=== PATIENT | female | born 1955 | race African-American/Black ===

== ENCOUNTER 2025-01-01 10:32 | Outpatient (CLI) | payer MEDICARE, SELFPAY ==
--- NOTE | ~2025-01-01 | MMUS_ITS ---
EXAMINATION: US breast RT limited, MM diagnostic ruby RT w quan HISTORY: Inconclusive mammogram. Focal asymmetry in the right breast at 11:00 position middle depth TECHNIQUE: [Additional images of the right breast]] were performed using full field digital mammography. 3-D tomosynthesis were also obtained and synthetic 2- D images were generated. CAD analysis was submitted and interpreted. High resolution right breast ultrasound of the right breast from the 9 to 12:00 position was performed.] ] COMPARISON: Mammograms from 11/12/2024 and 09/06/2022 BREAST PARENCHYMAL COMPOSITION: The right breast is composed of scattered fibroglandular densities FINDINGS: MAMMOGRAPHIC FINDINGS: There is a focal asymmetry in the right breast at the 11:00 position middle depth. No suspicious calcifications or architectural distortion. ULTRASOUND: There is a 4 x 4 x 3 mm nonenlarged morphologically benign intramammary lymph node in the right breast at the 12:00 position 6 cm from the nipple. No other cystic or solid mass identified. IMPRESSION/RECOMMENDATION: 1. Probably benign finding in the right breast. A diagnostic right breast mammogram and a diagnostic right breast ultrasound in 6 months is recommended. BIRADS 3-Probably Benign Reviewed, dictated and finalized at location Q. IMPRESSION/RECOMMENDATION: 1. Probably benign finding in the right breast. A diagnostic right breast mammo gram and a diagnostic right breast ultrasound in 6 months is recommended. BIRADS 3-Probably Benign IMPRESSION/RECOMMENDATION: 1. Probably benign finding in the right breast. A diagnostic right breast mammo gram and a diagnostic right breast ultrasound in 6 months is recommended. BIRADS 3-Probably Benign
--- OUTSIDE RECORDS SUMMARY | 2025-01-01 11:08 | XMS_ITS | Encounter Summary ---
Author Organization [facility] Address [address] [facility] [place] [address] Phone Care Team Providers Care Circuit Board Assembler Name Role Phone Preet Boles Unavailable Tanya Gonzalez APRN, ORDER PACKER [facility] Cristhian May MD Unavailable Encounter Details Date Type Department Care Team (Late st Contact Info) Description 11/15/2024 Telephone [facility] Central Scheduling [address] [place] [address] Tanya Gonzalez APRN, ORDER PACKER [address] [place] [address] Social History Tobacco Use Types Packs/Day Years Used Date Smoking Tobacco: Never Smokeless Tobacco: Never Alcohol Use Standard Drinks/Week Comments Yes 0 (1 standard drink = 0.6 oz pur e alcohol) occasionally a mixed drink [facility] Utilities Answer Date Recorded In the past 12 months has [employer] electric, gas, oil, or water company threatened to shut off services in your home? No 08/10/2024 Social Connection and Isolation Panel Answer Date Recorded In a typical week, how many times do you talk on the phone with family, friends, or neighbors? More than three times a week 08/10/2024 How often do you get togethe r with friends or relatives? More than three times a week 08/10/2024 How often do you attend chur or druze services? More than 4 times per year 08/10/2024 Do you belong to any clubs o r organizations such as sikh groups, unions, fraternal or athletic groups, or school groups? Yes 08/10/2024 How often do you attend meet ings of the clubs or organizations you belong to? More than 4 times per year 08/10/2024 Are you , , di vorced, , never , or living with a partner? 08/10/2024 AUDIT-C Answer Date Recorded Q1: How often do you have a drink containing alc ohol? 2-4 times a month 08/10/2024 Q2: How many drinks containi ng alcohol do you have on a typical day when you are drinking? 1 or 2 08/10/2024 Q3: How often do you have si x or more drinks on one occasion? Never 08/10/2024 Overall Financial Resource Strain (CARDIA) Answe r Date Recorded How hard is it for you to pa y for the very basics like food, housing, medical care, and heating? Not hard at all 08/10/2024 PHQ-2 Answer Date Recorded Total Score - Questions 1-9 0 07/31 [facility] - Occupational Stress Questionnaire Answer Date Recorded Do you feel stress - tense, restless, nervous, or anxious, or unable to sleep at night because your mind is troubled all the time - these days? Not at all 08/10/2024 Exercise Vital Sign Answer Date Recorde d On average, how many days pe r week do you engage in moderate to strenuous exercise (like a brisk walk)? 5 days 08/10/2024 On average, how many minutes do you engage in exercise at this level? 40 min 08/10/2024 Hunger Vital Sign Answer Date Recorded Within the past 12 months, y ou worried that your food would run out before you got the money to buy more. Never true 08/11/19 25 Within the past 12 months, t he food you bought just didn't last and you didn't have money to get more. Never true 08/10/2024 PRAPARE - Transportation Answer Date Re corded In the past 12 months, has l ack of transportation kept you from medical appointments or from getting medications? No 07/31 In the past 12 months, has l ack of transportation kept you from meetings, work, or from getting things needed for daily living? No 08/10/2024 Housing Stability Vital Sign Answer Tico e Recorded In the last 12 months, was t here a time when you were not able to pay the mortgage or rent on time? No 08/10/2024 In the past 12 months, how m any times have you moved where you were living? 0 08/10/2024 At any time in the past 12 m [facility], were you homeless or living in a prison (including now)? No 08/10/2024 Education Answer Date Recorded What is the highest level of school you have completed or the highest degree you have received? Associate degree: academic program 01/28/2023 Sexually Active Control Partners Comments Not Currently Post-menopausal Comments No Sex and Gender Information Value Date Recorded Sex Assigned at Not on file Legal Sex Female 8:51 PM CDT Gender Identity Not on file Sexual Orientation Not on file documented as of this encounter Miscellaneous Notes * Telephone Encounter - Madalyn Palomares RMA - 11/15/2024 9:03 AM CDT I called patient to help with getting her follow up DX mamm set up. As we are completely booked until the end of November, she is being referred to [facility] to have this done. Orders have beenfaxed and Imaging to be pushed to them to compare. Patient is aware and agreeable to have this there. documented in this encounter Plan of Treatment Upcoming Encounters Date Type Department Care Team (Late st Contact Info) Description 02/11/2025 8:10 AM CDT Lab [facility] [place] [place] [address] [facility] 02/18/2025 8:30 AM CDT Office Visit [facility] - [facility] - [place] [address] Tanya Gonzalez APRN, ORDER PACKER [address] [place] [address] documented as of this encounter Visit Diagnoses Not on filedocumented in this encounter Additional Health Concerns Assessment Noted Time PHQ-9 Depression Total Score: 0 08/14/19 25 8:15 AM CDT documented as of this encounter Care Teams Circuit Board Assembler Relationship Specialty Start Date End Date Tanya Gonzalez APRN, ORDER PACKER [address] [place] [address] PCP - General Advanced Practice Nurse 03/20/20 Preet Boles Consulting Physician Obstetrics & Gynecology 03/10/18 Cristhian May MD [address] [id number] Consulting Physician General Surgery 08/11/22 documented as of this encounter
--- OUTSIDE RECORDS SUMMARY | 2025-01-01 11:09 | XMS_ITS | Clinical Summary ---
Author Organization [facility] al Address [address] [place] [address] Care Team Providers Care Occupational Physician Name Role Phone No, Physician Primary Care Provider [phone] Preet Boles MD Unavailable Allergies Active Allergy Reactions Criticality Noted Date Comments Penicillins Unknown,Itching Low 03/10/2018 Medications multivitamin tablet Take by mouth Active vit Z-lmlqewh-pxbt- rutin-hb196 [id number] mg tablet Take by mouth Active ibuprofen (ADVIL,MOTRIN) 600 mg tablet Take 1 tablet (600 mg total) by mouth every 6 (six) hours as needed for pain 20 tablet 07/17/2020 Active HYDROcodone-gricelda taminophen (NORCO) 5-325 mg per tabletIndicatio ns:Pain Take 1-2 tablets by mouth every 4 (four) hours as needed for pain 10 tablet 07/17/2020 Active Active Problems Problem Noted Date Diagnosed Date Postmenopausal bleeding 05/22/2020 Fibroids 05/22/2020 Surgical History Surgery Date Site/Laterality Comments OTHER SURGICAL HISTORY 05/02/2001 - 06/01/2001 Right fatty tissue tumor arm Social History Tobacco Use Types Packs/Day Years Used Date Smoking Tobacco: Never Smokeless Tobacco: Never Alcohol Use Standard Drinks/Week Comments Yes 0 (1 standard drink = 0.6 oz pur e alcohol) AUDIT-C Answer Date Recorded Q1: How often do you have a drink containing alc ohol? 2-4 times a month 07/15/2020 Q2: How many drinks containi ng alcohol do you have on a typical day when you are drinking? 3 or 4 07/15/2020 Frequency of Binge Drinking Not on file 06/30 Comments No Sex and Gender Information Value Date Recorded Sex Assigned at Not on file Legal Sex Female 9:52 AM SHEET METAL SHOP HELPER Gender Identity Not on file Sexual Orientation Not on file Obstetrics History Para Term AB IAB SAB Ectopic Multiple Livin g Live Births 2 2 2 2 Date Outcome GA Total Labor Labor/2nd/3rd Weight Sex Type Anes PTL Alba A1 A5 Name Clin Term Term Last Filed Vital Signs Vital Sign Reading Time Taken Comments Blood Pressure 129/74 07/17/2020 3:37 PM CDT Pulse 77 07/17/2020 3:37 PM CDT Temperature 36.6 C (97.9 F) 07/17/2020 2:08 PM CDT Respiratory Rate 20 07/17/2020 3:37 PM CDT Oxygen Saturation 99% 07/17/2020 2:38 PM CDT Inhaled Oxygen Concentration - - Weight 74.1 kg (163 lb 5.8 oz) 07/17/2020 11:02 AM CDT Height 160 cm (5' 3) 07/17/2020 11:02 AM CDT Body Mass Index 28.94 07/17/2020 11:02 AM CDT Plan of Treatment Not on file Insurance [facility] [place] [facility] [facility] MEDICARE PPO HUMAN CLAIMS OFFICE [facility] [employer] CLAIMS OFFICE [employer] CHO[employer] MEDICARE PPO Care Teams Occupational Physician Relationship Specialty Start Date End Date No, Physician PCP - General 07/11/20 Preet Boles MD [address] [place] [address] [address]VAL[address] [id number] Drywall Boardhanger Obstetrics and Gynecology 07/17/20
--- OUTSIDE RECORDS SUMMARY | 2025-01-01 11:09 | XMS_ITS | Clinical Summary ---
Author Organization [facility] Address [address] [place] [address] Phone Care Team Providers Care Gis Software Engineer Name Role Phone Preet Boles Unavailable Tanya Gonzalez APRN, AGENCY RECRUITER Primary Care P rovider Cristhian May MD Unavailable Allergies Active Allergy Reactions Criticality Noted Date Comments Penicillins Itching,Unknown Low 03/10/2018 Medications Multiple Vitamin (MULTIVITAMIN PO) Take by mouth. Active Cyanocobalamin (VITAMIN B12 PO) Take by mouth. Active Ascorbic Acid (VITAMIN C PO) Take by mouth. Active Active Problems Problem Noted Date Diagnosed Date Wellness examination (Adult) 02/07/2024 Iron deficiency anemia due to chronic blood loss 02/07/2024 Encounter for immunization 02/07/2024 Colon polyps 12/12/2023 Mixed hyperlipidemia 07/29/2023 Fibroids 05/22/2020 Postmenopausal bleeding 05/22/2020 Encounters Date Type Department Care Team Description [facility] [address] [place] [address] Tanya Gonzalez APRN, AGENCY RECRUITER [facility] [place] [address] [place] [address] Tanya Gonzalez APRN, CNP 11/12/2024 10:32 AM CDT - 11/12/2024 11:59 PM CDT Hospital Encounter [facility] [address] [place] [address] Tanya Gonzalez APRN, CNP Discharge Disposition: Discharged to home or Selfcare 11/12/2024 Travel from Last 3 Months Immunizations Immunization Administration Dates Next Due Covid-19, Mrna, Lnp-s, Pf, 30 Mcg/0.3 Ml Dose (P johnzer) 07/21/2020,06/30/2020 Influenza, Trivalent, Adjuvanted, PF 02/19/2024 Pneumococcal conjugate PCV20 , polysaccharide [id number] conjugate, adjuvant, PF 02/07/2024 Family History Medical History Relation Name Comments Heart Attack Brother No Known Problems Daughter Congestive Heart Failure Father Heart Attack Father No Known Problems Maternal Grandfather Congestive Heart Failure Maternal Grandmother Cancer Mother kidney Hypertension Mother Hypertension Sister 1 Hypertension Sister 2 No Known Problems Son Relation Name Status Comments Brother Daughter Alive Father Maternal Grandfather Maternal Grandmother Mother Paternal Grandfather Paternal Grandmother Sister 1 Alive Sister 2 Alive Son Alive Social History Tobacco Use Types Packs/Day Years Used Date Smoking Tobacco: Never Smokeless Tobacco: Never Tobacco Cessation:Counseling Given: Not Answered Alcohol Use Standard Drinks/Week Comments Yes 0 (1 standard drink = 0.6 oz pur e alcohol) occasionally a mixed drink [employer] Answer Date Recorded In the past 12 months has [employer], [employer], or water [employer] threatened to shut off services in your [...] week 08/10/2024 How often do you attend [facility] or bahai services? More than 4 times per year 08/10/2024 Do you belong to any clubs o r organizations such as bahai groups, unions, fraternal or athletic groups, or [...] Total Score - Questions 1-9 0 07/31 [facility] - Occupational Stress [...] any time in the past 12 [facility], were you homeless or living in a fci (including now)? No 08/10/2024 Education Answer Date [...] on file Sexual Orientation Not on file Last Filed Vital Signs Vital Sign Reading Time Taken Comments Blood Pressure 124/70 08/13/2024 8:05 AM CDT Pulse 79 08/13/2024 8:05 AM CDT Temperature 36.3 C (97.3 F) 08/13/2024 8:05 AM CDT Respiratory Rate 20 08/13/2024 8:05 AM CDT Oxygen Saturation 99% 08/13/2024 8:05 AM CDT Inhaled Oxygen Concentration - - Weight 73.5 kg (162 lb) 08/13/2024 8:05 AM CDT Height 162.6 cm (5' 4) 08/13/2024 8:05 AM CDT Body Mass Index 27.81 08/13/2024 8:05 AM CDT Plan of Treatment Upcoming Encounters Date Type Department Care Team (Late st Contact Info) Description 02/11/2025 8:10 AM CDT [facility] [place] [address] [place] [address] [facility] 02/18/2025 8:30 AM CDT [facility] - [place] [address] [place] [address] Tanya Gonzalez APRN, AGENCY RECRUITER [address] [place] [address] Health Maintenance Due Date Last Done Comments TdaP Immunization 1955 Cologuard 2000 Immunochemical Fecal Occult Blood 2000 Zoster Immunization (1 of 2) 2005 Influenza Immunization (#1) 2024 02/19/2024 SARS-COV-2 Immunization ( season) 2024 02/19/2024, 06/26/2023, 02/06/2022, Additional history exists Mammogram 11/12/2025 11/12/2024, 10/30, 09/06/2022, Additional history exists DEXA Bone Density 02/12/2026 02/13/2024, 08/17/2021 Respiratory Syncytial Virus (RSV) Immunization (Adult) (1 - 1-dose 75+ series) 2030 Colonoscopy 12/11/2030 12/12/2023, 11/30, 10/27/2018 Colorectal Cancer Screening 12/11/2030 Hepatitis C Virus (HCV) Screening Completed 01/28/2023 Pneumococcal Immunization (50+ years) Completed 02/07/2024 Pneumococcal Immunization Combined Discontinued 02/07/2024 Hepatitis B Immunization Aged Out No longer eligible based on patient's age to complete this topic Human Papillomavirus (HPV) Immunization Aged Out No longer eligible based on patient's age to complete this topic Meningococcal Immunization (ACWY) Aged Out No longer eligible based on patient's age to complete this topic Rotavirus Immunization Aged Out No lo nger eligible based on patient's age to complete this topic Procedures Procedure Name Priority Date/Time Associated Diagnosis Comments JUSTUS SCREENING BILATERAL DIGITAL W CAD W VICENTA Routine 11/12/2024 11:00 AM CDT Encounter for screening mammogram for breast cancer JUSTUS BONE DENSITOMETRY AXIAL SKELETON Routine 02/13/2024 9:29 AM CDT Postmenopausal HEPATITIS C ANTIBODY Routine 01/28/2023 10:36 AM CDT Encounter for HCV screening test for low risk patient from Last 3 Months or Most Recently Relevant to Health Maintenance Results * JUSTUS SCREENING BILATERAL DIGITAL W CAD W VICENTA (11/12/2024 11:00 AM CDT) Anatomical Region Laterality Modality breast Bilateral Mammography 11/12/2024 10:3 4 AM CDT Narrative 11/13/2024 12:37 PM CDT - JUSTUS SCREENING BILATERAL DIGITAL W CAD W VICENTA BILATERAL DIGITAL SCREENING MAMMOGRAM 3D/2D WITH CAD WITH MEDIOLATERAL OBLIQUE CRANIOCAUDAL: 11/12/2024 The study was acquired using digital technology and interpreted from soft copy. Current study was also evaluated with ICAD version 7.2. 2D digital mammographic views, as well as 3D digital tomosynthesis were performed in the CC and MLO projections. CLINICAL: Routine screening. Patient has no complaints. No personal history of cancer. Sister with postmenopausal breast cancer. COMPARISONS: Comparison is made to exams dated: 11/11/2023, 09[facility]06/2022, [facility] BREAST TISSUE:There are scattered areas of fibroglandular density. FINDINGS: There is a focal asymmetry in the right breast at 11 o'clock middle depth. No other significant masses, calcifications, or other findings are seen in either breast. IMPRESSION: INCOMPLETE: NEED ADDITIONAL IMAGING EVALUATION The focal asymmetry in the right breast is indeterminate. An immediate follow-up is recommended. A letter will be sent to the patient with these results. Electronically signed by: Guerda miner/ji:11/12/2024 16:34:23 Processing Technologist(s): RT Tomasa(R)(M), [facility] letter sent: Additional Imaging Reading location: [facility] Mammogram BI-RADS: Category 0: Incomplete: Need Additional Imaging Evaluation Procedure Note Guerda Andre MD - 11/13/2024 - JUSTUS SCREENING BILATERAL DIGITAL W CAD W VICENTA BILATERAL DIGITAL SCREENING MAMMOGRAM 3D/2D WITH CAD WITH MEDIOLATERAL OBLIQUE CRANIOCAUDAL: 11/12/2024 The study was acquired using digital technology and interpreted from soft copy. Current study was also evaluated with ICAD version 7.2. 2D digital mammographic views, as well as 3D digital tomosynthesis were performed in the CC and MLO projections. CLINICAL: Routine screening. Patient has no complaints. No personal history of cancer. Sister with postmenopausal breast cancer. COMPARISONS: Comparison is made to exams dated: 11/11/2023, 09/06/2022, and 06/15/2021 [facility]. BREAST TISSUE:There are scattered areas of fibroglandular density. FINDINGS: There is a focal asymmetry in the right breast at 11 o'clock middle depth. No other significant masses, calcifications, or other findings are seen in either breast. IMPRESSION: INCOMPLETE: NEED ADDITIONAL IMAGING EVALUATION The focal asymmetry in the right breast is indeterminate. An immediate follow-up is recommended. A letter will be sent to the patient with these results. Electronically signed by: Guerda miner/ji:11/12/2024 16:34:23 Processing Technologist(s): RT Tomasa(R)(M), [facility] letter sent: Additional Imaging Reading location: [place] Mammogram BI-RADS: Category 0: Incomplete: Need Additional Imaging Evaluation Tanya Gonzalez APRN, CNP IM MAMMO ORDER BRODERICK Final Result * JUSTUS BONE DENSITOMETRY AXIAL SKELETON (02/13/2024 9:29 AM CDT) Anatomical Region Laterality Modality BODY N/A Computed Radiogr aphy 02/14/2024 5:54 AM CDT Impressions 02/14/2024 5:57 AM CDT IMPRESSION: Normal bone mass. REFERENCE: Bone mineral density: T-Score: Normal (T-score above or = -1.0) Low bone mass (T-score between -1.0 and -2.5) replaces the previously used term osteopenia Osteoporosis (T-score = or below -2.5) Z-Score: Within the expected range for age (Z-score above -2.0) Below the expected range for age (Z-score is -2.0 or below) Please see below follow up recommendations. Medical evaluation for secondary causes of low bone mineral density may be appropriate. FRAX is a World Health Organization validated fracture risk assessment tool that calculates a person's 10 year probability of a major osteoporosis related fracture and hip fracture. According to the National Osteoporosis Foundation guidelines, postmenopausal women and men age 50 or older with low bone mass and a 10 year probability of a major osteoporosis related fracture = or greater than 20% or a 10 year probability of a hip fracture = or greater than 3% should be considered for pharmacological treatment for the prevention of osteoporosis. For further information, including treatment recommendations, please refer to the 2019 ISCD Official Positions (http://www.iscd.org) and the NOF's Clinician's Guide to Prevention and Treatment of Osteoporosis (http://www.nof.org/professionals/clinical-guidelines) Narrative 02/14/2024 5:57 AM CDT EXAM DESCRIPTION: [facility] BONE DENSITOMETRY AXIAL SKELETON REASON FOR STUDY: 68 y/o year old F with given history of: Postmenopausal status. History taking a multivitamin. Mortgage Underwriter/Model: [employer] (S/N [id number]) CLINICAL INFORMATION: Current height: 64 inches Maximum height: 64 inches Weight: 158 pounds Risk factors: None COMPARISON: 08/17/2021 FINDINGS: AP LUMBAR SPINE L1-L4: Total BMD is 1.266 g/cm2 T-score is 0.6 This is a 4.1% decrease in comparison to prior exam which is statistically significant. LEFT HIP: Total BMD is 1.048 g/cm2 T-score is 0.3 This is a 1.9% decrease in comparison to prior exam which is not statistically significant. Femoral neck BMD is 1.004 g/cm2 T-score is -0.2 FRAX: FRAX not reported due to T-scores of hip, femoral neck and/or spine being at or above -1.0 (Normal). THIS IS AN ELECTRONICALLY VERIFIED FINAL REPORT 02/14/2024 5:54 AM - Electronically signed by Danielle Mcclure M.D. TW: ALFONSO Report ID: [id number] Reading Location: [place] [address] Procedure Note Danielle Mcclure MD - 02/14/2024 EXAM DESCRIPTION: [facility] BONE DENSITOMETRY AXIAL SKELETON REASON FOR STUDY: 68 y/o year old F with given history of: Postmenopausal status. History taking a multivitamin. Mortgage Underwriter/Model: [employer] (S/N [id number]) CLINICAL INFORMATION: Current height: 64 inches Maximum height: 64 inches Weight: 158 pounds Risk factors: None COMPARISON: 08/17/2021 FINDINGS: AP LUMBAR SPINE L1-L4: Total BMD is 1.266 g/cm2 T-score is 0.6 This is a 4.1% decrease in comparison to prior exam which is statistically significant. LEFT HIP: Total BMD is 1.048 g/cm2 T-score is 0.3 This is a 1.9% decrease in comparison to prior exam which is not statistically significant. Femoral neck BMD is 1.004 g/cm2 T-score is -0.2 FRAX: FRAX not reported due to T-scores of hip, femoral neck and/or spine being at or above -1.0 (Normal). THIS IS AN ELECTRONICALLY VERIFIED FINAL REPORT 02/14/2024 5:54 AM - Electronically signed by Danielle Mcclure M.D. TW: TW Report ID: [id number] Reading Location: [place] [address] IMPRESSION: Normal bone mass. REFERENCE: Bone mineral density: T-Score: Normal (T-score above or = -1.0) Low bone mass (T-score between -1.0 and -2.5) replaces the previously used term osteopenia Osteoporosis (T-score = or below -2.5) Z-Score: Within the expected range for age (Z-score above -2.0) Below the expected range for age (Z-score is -2.0 or below) Please see below follow up recommendations. Medical evaluation for secondary causes of low bone mineral density may be appropriate. FRAX is a World Health Organization validated fracture risk assessment tool that calculates a person's 10 year probability of a major osteoporosis related fracture and hip fracture. According to the National Osteoporosis Foundation guidelines, postmenopausal women and men age 50 or older with low bone mass and a 10 year probability of a major osteoporosis related fracture = or greater than 20% or a 10 year probability of a hip fracture = or greater than 3% should be considered for pharmacological treatment for the prevention of osteoporosis. For further information, including treatment recommendations, please refer to the 2019 ISCD Official Positions (http://www.iscd.org) and the NOF's Clinician's Guide to Prevention and Treatment of Osteoporosis (http://www.nof.org/professionals/clinical-guidelines) Tanya Gonzalez APRN, CNP IMG DEXA ORDERA BLES Final Result * HEPATITIS C ANTIBODY (01/28/2023 10:36 AM CDT) hepatitis C antibody 0.09 <1 S/CO [facility] ARCH [id number] B 01/29/2023 1:53 AM CDT [facility] Comment: Signal/Cutoff ratio < 0.79 is Nondetected Signal/Cutoff ratio 0.80-0.99 is Grayzone Signal/Cutoff ratio > 0.99 is Detected Supplemental assays are recommended if signal/cutoff ratio is >/=1.00. Signal/cutoff ratio result >/= 5.00 is 97% predictive of positivity for recombinant immunoblot assay (RIBA) and will be reported to the [place] Department of Public Health as required. Blood Venipuncture / Unknown 01/28/2023 10:36 AM CDT 01/28/2023 10:36 AM CDT Tanya Gonzalez APRN, CNP CHEMISTRY ORDER BRODERICK Final Result [facility] [address] [place] [address], from Last 3 Months or Most Recently Relevant to Health Maintenance Insurance MEDICARE [employer] [facility] Member Subscriber Plan / Payer (Ef fective 2022-Present) Name:Lexy Daneglo Relation to Subscriber:Self Name:Lexy Dangelo Payer ID:[id number] (NAIC) Type:Not on file Address: [place] [id number] [place] [id number] Care Teams Gis Software Engineer Relationship Specialty Start Date End Date Tanya Gonzalez APRN, AGENCY RECRUITER [address] [place] [address] PCP - General Advanced Practice Nurse 03/20/20 Preet Boles Consulting Physician Obstetrics & Gynecology 03/10/18 Cristhian May MD [address] [address] Consulting Physician General Surgery 08/11/22
== END 2025-01-01 10:33 | disposition home or self-care (01) ==
LOC: ANHFOHIMG 10:36
DX: R92.8 Other abnormal and inconclusive findings on diagnostic imaging of breast (principal)
CPT/HCPCS: 76642; 77061; 77065; G0279